=== PATIENT | male | born 1965 | race Caucasian/White ===

== ENCOUNTER 2021-06-06 09:00 | Outpatient (RCR) | payer BC, SELFPAY | END 2021-06-08 23:59 | disposition home or self-care (01) | LOC: CR 09:00 | PROVIDERS: Visit Provider Family Medicine | DX: Z51.89 Encounter for other specified aftercare (principal); I25.2 Old myocardial infarction; Z95.5 Presence of coronary angioplasty implant and graft | CPT/HCPCS: S9472 ==

== ENCOUNTER 2021-06-11 14:42 | Outpatient (RCR) | payer BC, SELFPAY | END 2021-07-05 16:32 | LOC: CR 14:42 | PROVIDERS: Visit Provider Family Medicine | DX: I25.2 Old myocardial infarction (principal); Z95.5 Presence of coronary angioplasty implant and graft; Z51.89 Encounter for other specified aftercare | CPT/HCPCS: S9472 ==

== ENCOUNTER 2021-07-09 09:00 | Outpatient (RCR) | payer BC, SELFPAY | END 2021-07-09 23:59 | disposition home or self-care (01) | LOC: CR 09:00 | PROVIDERS: Visit Provider Family Medicine | DX: Z51.89 Encounter for other specified aftercare (principal); I25.2 Old myocardial infarction; Z95.5 Presence of coronary angioplasty implant and graft | CPT/HCPCS: S9472 ==

== ENCOUNTER 2021-08-01 09:00 | Outpatient (RCR) | payer BC, SELFPAY | END 2021-08-06 23:59 | disposition home or self-care (01) | LOC: CR 09:00 | PROVIDERS: Visit Provider Family Medicine | DX: I25.2 Old myocardial infarction (principal); Z95.5 Presence of coronary angioplasty implant and graft; Z51.89 Encounter for other specified aftercare | CPT/HCPCS: S9472 ==

== ENCOUNTER 2021-09-03 09:00 | Outpatient (RCR) | payer BC, SELFPAY | END 2021-09-06 23:59 | disposition home or self-care (01) | LOC: CR 09:00 | PROVIDERS: Visit Provider Family Medicine | DX: Z51.89 Encounter for other specified aftercare (principal); I25.2 Old myocardial infarction; Z95.5 Presence of coronary angioplasty implant and graft | CPT/HCPCS: S9472 ==

== ENCOUNTER 2021-09-21 09:00 | Outpatient (RCR) | payer BC, SELFPAY | END 2021-10-06 23:59 | disposition home or self-care (01) | LOC: CR 09:00 | PROVIDERS: Visit Provider Internal Medicine Cardiovascular Disease | DX: Z51.89 Encounter for other specified aftercare (principal); I25.2 Old myocardial infarction; Z95.5 Presence of coronary angioplasty implant and graft | CPT/HCPCS: S9472 ==